=== PATIENT | female | born 1995 | race American Indian/Alaskan Native ===

== ENCOUNTER 2021-06-10 02:57 | Emergency (ER) | payer OTHER ==
[2021-06-10 03:45] VITALS: BP 104/61
[2021-06-10] MEDS ORDERED: FAMOTIDINE 20 MG TAB PO ONE (03:51)
[2021-06-10] MEDS ORDERED: METOCLOPRAMIDE 10 MG TAB PO ONE (03:51)
[2021-06-10] MEDS ORDERED: ACETAMINOPHEN 500 MG TAB PO ONE (03:51)
[2021-06-10 04:36] LABS: HCG Qualitative,Urine Positive (Negative)
[2021-06-10 04:37] LABS: Basophils % (Auto) 0.4 % (0.0-1.8); Eosinophils # (Auto) 0.1 K/mm3 (0.0-0.4); Eosinophils % (Auto) 1.1 % (0.0-4.3); Hematocrit 37.1 % (30.3-42.9); Hemoglobin 12.2 gm/dl (10.1-14.3); Lymphocytes # (Auto) 1.5 K/mm3 (1.2-5.4); Lymphocytes % (Auto) 14.6 % (13.4-35.0); Mean Corpuscular HGB Conc 33 % (30-34); Mean Corpuscular Volume 95 fl (79-97); Monocytes # (Auto) 1.2 K/mm3 (0.0-0.8); Monocytes % (Auto) 12.1 % (0.0-7.3); Platelet Count 257 K/mm3 (140-440); Red Blood Count 3.89 M/mm3 (3.65-5.03); Red Cell Distribution Width 13.5 % (13.2-15.2)
[2021-06-10 04:44] LABS: Alanine Aminotransferase 11 units/L (7-56); Albumin 4.5 g/dL (3.9-5); Blood Urea Nitrogen 7 mg/dL (7-17); Calcium 9.1 mg/dL (8.4-10.2); Hemolysis Index 12
[2021-06-10 04:46] LABS: Bacteria,Urine 1+ /HPF (Negative); Bilirubin,Urine NEG (Negative); Blood,Urine NEG (Negative); Color,Urine Yellow (Yellow); Mucus,Urine FEW /HPF; Protein,Urine <15 mg/dL mg/dL (Negative); Urobilinogen,Urine < 2.0 mg/dL (<2.0)
[2021-06-10 05:10] LABS: BUN/Creatinine Ratio 14
--- NOTE | 2021-06-10 06:05 | Ultrasound Report ---
ULTRASOUND OBSTETRIC REASON FOR EXAM: Abdominal pain TECHNIQUE: Transabdominal and transvaginal ultrasound was performed to evaluate a first trimester pre gnancy. COMPARISON: None available. FINDINGS: FINDINGS: The pole, yolk sac, and gestational sac are normal in appearance. [place]-rump length: 11.7 mm. This corresponds with a gestational age of 7 weeks 2 days. heart rate: 177 bpm Perigestational hemorrhage: No evidence of perigestational hemorrhage on the provided images. MATERNAL FINDINGS: The uterus is enlarged with multiple fibroids. Neither ovary is seen. No significant cystic or solid mass in either adnexa. Cul-de-sac: There is no free fluid. IMPRESSION: Viable intrauterine . Gestational age is 7 weeks 2 days by ultrasound. Recommend clinical sc reening and ultrasound follow-up in the second trimester to screen for anomalies. Signer Name: Jonathan Ruiz MD Signed: 06/10/2021 6:00 AM Workstation Name: [id number]
--- NOTE | 2021-06-10 06:22 | Emergency Department Report ---
ED Abdominal Pain HPI - General Chief Complaint: Abdominal Pain Stated Complaint: ABDO PAIN Source: patient Mode of arrival: Ambulatory Limitations: No Limitations - History of Present Illness Initial Comments: Patient is a A0 26-year-old -[place] female who is approximately 7 weeks gestation presents to the ED with complaint of acute onset persistent diffuse abdominal pain with urinary frequency and urgency and low back pain for the last 2 days, worse in the last 6 hours. Patient states that her pain especially got worse while at work. Patient denies vaginal bleeding, vaginal discharge, dizziness, syncope, fever, chills, dysuria, traumatic injury, heavy lifting, chest pain or shortness of breath, numbness and tingling or weakness of upper and lower extremities bilaterally or change in vision and lightheadedness. MD Complaint: abdominal pain -: Sudden Location: diffuse Radiation: none Migration to: no migration Severity scale (0 -10): 7 Quality: cramping, aching, sharp Consistency: constant Improves With: nothing Worsens With: movement Associated Symptoms: denies other symptoms, nausea. denies: vomiting, diarrhea, chills, constipation, hematemesis, melena, anorexia, syncope, other - Related Data Previous Rx's Medication Instructions Recorded Last Taken Type Acetaminophen [Tylenol] 500 mg PO Q6HR PRN #30 tablet 06/10/21 Unknown Rx Allergies Allergy/AdvReac Type Severity Reaction Status Date / Time No Known Allergies Allergy Unverified 06/10/21 03:46 ED Review of Systems ROS: Stated complaint: ABDO PAIN Other details as noted in HPI Constitutional: denies: chills, fever Eyes: denies: eye pain, eye discharge, vision change ENT: denies: ear pain, throat pain Respiratory: denies: cough, shortness of breath, wheezing Cardiovascular: denies: chest pain, palpitations Endocrine: no symptoms reported Gastrointestinal: abdominal pain, nausea. denies: diarrhea Genitourinary: denies: urgency, dysuria, discharge Musculoskeletal: denies: back pain, joint swelling, arthralgia Skin: denies: rash, lesions Neurological: denies: headache, weakness, paresthesias Psychiatric: denies: anxiety, depression Hematological/Lymphatic: denies: easy bleeding, easy bruising ED Past Medical Hx - Past Medical History Previous Medical History?: No - Surgical History Past Surgical History?: No - Social History Smoking Status: Never Smoker Substance Use Type: None - Medications Home Medications: Home Medications Medication Instructions Recorded Confirmed Last Taken Type Acetaminophen [Tylenol] 500 mg PO Q6HR PRN #30 tablet 06/10/21 Unknown Rx ED Physical Exam - General Limitations: No Limitations General appearance: alert, in no apparent distress - Head Head exam: Present: atraumatic, normocephalic, normal inspection - Eye Eye exam: Present: normal appearance, PERRL, EOMI Pupils: Present: normal accommodation - ENT ENT exam: Present: normal exam, normal orophraynx, mucous membranes moist, TM's normal bilaterally, normal external ear exam - Neck Neck exam: Present: normal inspection, full ROM. Absent: tenderness - Respiratory Respiratory exam: Present: normal lung sounds bilaterally. Absent: respiratory distress, wheezes, rales, rhonchi, chest wall tenderness, accessory muscle use, decreased breath sounds, prolonged expiratory - Cardiovascular Cardiovascular Exam: Present: regular rate, normal rhythm, normal heart sounds. Absent: systolic murmur, diastolic murmur, rubs, gallop - GI/Abdominal GI/Abdominal exam: Present: soft, tenderness (Palpable diffuse abdominal tenderness), normal bowel sounds. Absent: guarding, rebound, hyperactive bowel sounds, hypoactive bowel sounds, organomegaly - Extremities Exam Extremities exam: Present: normal inspection, full ROM, normal capillary refill - Back Exam Back exam: Present: normal inspection, full ROM. Absent: tenderness, CVA tenderness (R), CVA tenderness (L), muscle spasm, paraspinal tenderness, vertebral tenderness - Neurological Exam Neurological exam: Present: alert, oriented X3, CN II-XII intact, normal gait, reflexes normal - Psychiatric Psychiatric exam: Present: normal affect, normal mood - Skin Skin exam: Present: warm, dry, intact, normal color. Absent: rash ED Course Vital Signs 06/10/21 03:27 Temperature 98.2 F Pulse Rate 86 Respiratory 16 Rate Blood Pressure 104/61 O2 Sat by Pulse 100 Oximetry ED Medical Decision Making - Lab Data Result diagrams: 06/10/21 04:08 06/10/21 04:08 - Radiology Data Radiology results: report reviewed, image reviewed [facility] [address] [place] [address] Ultrasound Report Signed Patient: PETRA DIMAS MR#: [id number] : 1995 Acct:[id number] Age/Sex: 26 / F ADM Date: 06/10/21 Loc: ED Attending Dr: Ordering Physician: DINO RUIZ Date of Service: 06/10/21 Procedure(s): US OB transvaginal Accession Number(s): [id number] cc: DINO RUIZ ULTRASOUND OBSTETRIC REASON FOR EXAM: Abdominal pain TECHNIQUE: Transabdominal and transvaginal ultrasound was performed to evaluate a first trimester . COMPARISON: None available. FINDINGS: FINDINGS: The pole, yolk sac, and gestational sac are normal in appearance. [place]-rump length: 11.7 mm. This corresponds with a gestational age of 7 weeks 2 days. heart rate: 177 bpm Perigestational hemorrhage: No evidence of perigestational hemorrhage on the provided images. MATERNAL FINDINGS: The uterus is enlarged with multiple fibroids. Neither ovary is seen. No significant cystic or solid mass in either adnexa. Cul-de-sac: There is no free fluid. IMPRESSION: Viable intrauterine . Gestational age is 7 weeks 2 days by ultrasound. Recommend clinical screening and ultrasound follow-up in the second trimester to screen for anomalies. Signer Name: Aneta Ruiz MD Signed: 06/10/2021 6:00 AM Workstation Name: [id number] Transcribed By: GISELA Dictated By: ANETA RUIZ MD Electronically Authenticated By: ANETA RUIZ MD Signed Date/Time: 06/10/21 0600 DD/ [id number] TD/TT: - Medical Decision Making This is a A0 26-year-old -[place] female who is approximately 7 weeks gestation presents to the ED with complaint of acute onset persistent diffuse abdominal pain with urinary frequency and urgency and low back pain for the last 2 days, worse in the last 6 hours. Patient states that her pain especially got worse while at work. In the ED, patient is alert and oriented x3 and is not in any distress but appears to be in significant pain. Patient was treated for pain in the ED with Tylenol. Lab test results were reviewed and are all nonactionable. Transvaginal ultrasound showed a single viable intrauterine of approximately 7 weeks, 2 days and with a heart rate of 177 bpm. On reevaluation, patient's pain is well controlled medication. Patient will discharge home on Tylenol prescriptions and advised to maintain a complete pelvic rest and follow-up with [facility] physician in 3 to 5 days for reevaluation or return to the ED immediately if her symptoms get worse. - Differential Diagnosis UTI; ; kidney stone; ovarian cyst; round ligament pain Critical care attestation.: If time is entered above; I have spent that time in minutes in the direct care of this critically ill patient, excluding procedure time. ED Disposition Clinical Impression: Abdominal pain during in first trimester Disposition: HOME / SELF CARE / HOMELESS Is pt being admited?: No Does the pt Need Aspirin: No Condition: Stable Instructions: Abdominal Pain (ED), Abdominal Pain During , [id number] Additional Instructions: All lab test results were reviewed and are all nonactionable. Transvaginal ultrasound showed a single viable intrauterine of approximately 7 weeks and 2 days and with a heart rate of 177 bpm. Therefore maintain a complete pelvic rest with no heavy lifting, sexual activity and follow-up with the [facility] physician in 3 to 5 days for reevaluation. Take Tylenol only as needed for pain. Return to the ED immediately if symptoms get worse. Prescriptions: Acetaminophen [Tylenol] 500 mg PO Q6HR PRN #30 tablet PRN Reason: Pain , Severe (7-10) Referrals: MCKAYLA TERRY MD [Staff Physician] - 3-5 Days Forms: Work/School Release Form(ED) Time of Disposition: 06:25 Print Language: LATVIAN
== END 2021-06-10 07:13 | disposition home or self-care (01) ==
LOC: ED 02:57
DX: O26.891 Other specified pregnancy related conditions, first trimester (principal); R10.9 Unspecified abdominal pain; Z3A.01 Less than 8 weeks gestation of pregnancy
CPT/HCPCS: 36415; 76801; 76817; 80053; 81001; 81025; 83690; 84702; 85025; 99284